=== PATIENT | male | born 1965 | race Caucasian/White ===

== ENCOUNTER → 2016-11-01 | Outpatient (CLI) | payer MEDICARE, OTHER ==
[~2016-11-01] VITALS: Ht 182.9 cm; Wt 96.6 kg
[~2016-11-01] MED LIST: ATEN100T PO; CLOM25CA2 PO; CLON2TAB PO; FENO150C PO; HYDR-4274 PO; HYDR12CA PO; HYDR25T PO; LIDOCAINE 2% INJ 100 MG/5 ML SDV (FOR ANES.) As Ordered ONE; LISI-538 PO; NS 1,000 ML IV ONE; PROPOFOL 200 MG/20 ML VIAL As Ordered ONE
--- NOTE | 2016-11-01 09:47 | ROOR ---
Patient Name: Lg Muñoz Procedure Date: 11/01/2016 9:28 AM Date of : 1965 Age: 51 Room: [facility] Gender: Male Note Status: Finalized Procedure: Upper GI endoscopy Indications: Epigastric abdominal pain, Suspected esophageal reflux Providers: Vernon Calhoun Jr, MD Referring MD: Tramaine Murray MD Requesting Provider: Medicines: Propofol per Anesthesia Complications: No immediate complications. Procedure: Pre-Anesthesia Assessment: - Prior to the procedure, a History and Physical was performed, and patient medications and allergies were reviewed. The patient is competent. The risks and benefits of the procedure and the sedation options and risks were discussed with the patient. All questions were answered and informed consent was obtained. Patient identification and proposed procedure were verified by the physician and the nurse in the pre-procedure area and in the procedure room. Mental Status Examination: alert and oriented. Airway Examination: normal oropharyngeal airway and neck mobility. Respiratory Examination: clear to auscultation. CV Examination: normal. ASA Grade Assessment: II - A patient with mild systemic disease. After reviewing the risks and benefits, the patient was deemed in satisfactory condition to undergo the procedure. The anesthesia plan was to use moderate sedation / analgesia (conscious sedation). Immediately prior to administration of medications, the patient was re-assessed for adequacy to receive sedatives. The heart rate, respiratory rate, oxygen saturations, blood pressure, adequacy of pulmonary ventilation, and response to care were monitored throughout the procedure. The physical status of the patient was re-assessed after the procedure. The Endoscope was introduced through the mouth, and advanced to the second part of duodenum. The upper GI endoscopy was accomplished without difficulty. The patient tolerated the procedure. Findings: The upper third of the esophagus, middle third of the esophagus and lower third of the esophagus were normal. A small hiatal hernia was present. The cardia, gastric fundus, gastric body and gastric antrum were normal. Patchy moderate inflammation characterized by congestion (edema), erythema, friability and granularity was found in the prepyloric region of the stomach. Biopsies were taken with a cold forceps for histology. The duodenal bulb and first portion of the duodenum were normal. Impression: - Normal upper third of esophagus, middle third of esophagus and lower third of esophagus. - Small hiatal hernia. - Normal cardia, gastric fundus, gastric body and antrum. - Gastritis. Biopsied. - Normal duodenal bulb and first portion of the duodenum. Recommendation: - Discharge patient to home (ambulatory). - Return to my office in 4 weeks. Vernon Calhoun MD Vernon Calhoun Jr, MD 11/01/2016 9:46:39 AM This report has been signed electronically. Number of Addenda: 0 Note Initiated On: 11/01/2016 9:28 AM Estimated Blood Loss: Estimated blood loss: none.
--- NOTE | 2016-11-01 09:58 | ROOR ---
Patient Name: Lg Muñoz Procedure Date: 11/01/2016 9:28 AM Date of : 1965 Age: 51 Room: [facility] Gender: Male Note Status: Finalized Procedure: Colonoscopy Indications: Rectal bleeding Providers: Vernon Calhoun Jr, MD Referring MD: Tramaine Murray MD Requesting Provider: Medicines: Propofol per Anesthesia Complications: No immediate complications. Procedure: Pre-Anesthesia Assessment: - Prior to the procedure, a History and Physical was performed, and patient medications and allergies were reviewed. The patient is competent. The risks and benefits of the procedure and the sedation options and risks were discussed with the patient. All questions were answered and informed consent was obtained. Patient identification and proposed procedure were verified by the physician and the nurse in the pre-procedure area and in the procedure room. Mental Status Examination: alert and oriented. Airway Examination: normal oropharyngeal airway and neck mobility. Respiratory Examination: clear to auscultation. CV Examination: normal. ASA Grade Assessment: II - A patient with mild systemic disease. After reviewing the risks and benefits, the patient was deemed in satisfactory condition to undergo the procedure. The anesthesia plan was to use moderate sedation / analgesia (conscious sedation). Immediately prior to administration of medications, the patient was re-assessed for adequacy to receive sedatives. The heart rate, respiratory rate, oxygen saturations, blood pressure, adequacy of pulmonary ventilation, and response to care were monitored throughout the procedure. The physical status of the patient was re-assessed after the procedure. The Colonoscope was introduced through the anus and advanced to the cecum, identified by appendiceal orifice and ileocecal valve. The colonoscopy was performed without difficulty. The patient tolerated the procedure well. The quality of the bowel preparation was adequate and good. Findings: The perianal exam findings include non-thrombosed external hemorrhoids, non-thrombosed internal hemorrhoids, internal hemorrhoids that prolapse with straining, but spontaneously regress to the resting position (Grade II) and internal hemorrhoids that prolapse with straining, but require manual replacement into the anal canal (Grade III). The recto-sigmoid colon, sigmoid colon, descending colon, transverse colon, ascending colon, cecum, appendiceal orifice and ileocecal valve appeared normal. Localized severe inflammation characterized by congestion (edema), erythema, friability and granularity was found in the rectum. Biopsies were taken with a cold forceps for histology. Impression: - Non-thrombosed external hemorrhoids, non-thrombosed internal hemorrhoids, internal hemorrhoids that prolapse with straining, but spontaneously regress to the resting position (Grade II) and internal hemorrhoids that prolapse with straining, but require manual replacement into the anal canal (Grade III) found on perianal exam. - The recto-sigmoid colon, sigmoid colon, descending colon, transverse colon, ascending colon, cecum, appendiceal orifice and ileocecal valve are normal. - Localized severe inflammation was found in the rectum. Biopsied. Recommendation: - Discharge patient to home (ambulatory). - Return to my office in 1 month. Vernon Calhoun MD Vernon Calhoun Jr, MD 11/01/2016 9:57:49 AM This report has been signed electronically. Number of Addenda: 0 Note Initiated On: 11/01/2016 9:28 AM Estimated Blood Loss: Estimated blood loss: none.
[2016-11-01 10:25] VITALS: BP 157/97
== END | disposition home or self-care (01) ==
LOC: M OPP 08:52
PROVIDERS: ATTEND Surgery
DX: K62.5 Hemorrhage of anus and rectum (principal); K64.1 Second degree hemorrhoids; K64.2 Third degree hemorrhoids; K64.4 Residual hemorrhoidal skin tags; K62.89 Other specified diseases of anus and rectum; R10.13 Epigastric pain; K44.9 Diaphragmatic hernia without obstruction or gangrene; K29.70 Gastritis, unspecified, without bleeding; I10 Essential (primary) hypertension; E78.5 Hyperlipidemia, unspecified; K58.9 Irritable bowel syndrome, unspecified; M19.90 Unspecified osteoarthritis, unspecified site; F41.9 Anxiety disorder, unspecified; F32.9 Major depressive disorder, single episode, unspecified; G47.30 Sleep apnea, unspecified; F42.9 Obsessive-compulsive disorder, unspecified; Z88.8 Allergy status to other drugs, medicaments and biological substances; Z79.899 Other long term (current) drug therapy

== ENCOUNTER 2023-12-19 10:23 | Day surgery (SDC) | payer MEDICARE ==
[~2023-12-19] VITALS: Ht 182.9 cm; Wt 104.6 kg
[~2023-12-19 10:23] MED LIST changes: +ATEN50TA2 PO; +CARI1TAB7 PO; +CLOM1CAP3 PO; -CLOM25CA2 PO; -CLON2TAB PO; +CLON2TAB7 PO; +EZET10TA21 PO; +HYDR-3363 PO; +HYDR-3719 PO; -HYDR-4274 PO; -HYDR25T PO; +HYDR50TA70 PO; -LIDOCAINE 2% INJ 100 MG/5 ML SDV (FOR ANES.) As Ordered ONE; -LISI-538 PO; +LISI20TA33 PO; +METH20TA29 PO; -NS 1,000 ML IV ONE; +OMEP-173 PO; +OXYC20TA2 PO; -PROPOFOL 200 MG/20 ML VIAL As Ordered ONE; +TRAZ-257 PO
[2023-12-19] MEDS: NS 1,000 ML IV ONE (11:00)
[2023-12-19] MEDS ORDERED: propofoL 200 MG/20 ML VIAL As Ordered ONE (11:55)
[2023-12-19] MEDS ORDERED: ePHEDrine SULFATE 25 MG/5 ML(5MG/ML) SYRINGE As Ordered ONE (12:12)
[2023-12-19 12:40] VITALS: BP 140/83; TEMP 97.7; O2SAT 93
== END 2023-12-19 12:49 | disposition home or self-care (01) ==
LOC: M OPP 10:23
PROVIDERS: ATTEND Surgery
DX: Z12.11 Encounter for screening for malignant neoplasm of colon (principal); K63.5 Polyp of colon; K57.30 Diverticulosis of large intestine without perforation or abscess without bleeding; Z79.899 Other long term (current) drug therapy; Z79.891 Long term (current) use of opiate analgesic; Z88.1 Allergy status to other antibiotic agents; Z88.5 Allergy status to narcotic agent